=== PATIENT | male | born 1985 | race Caucasian/White ===

== ENCOUNTER 2018-09-12 15:50 | Emergency (ER) | payer SELFPAY ==
[~2018-09-12] VITALS: Wt 78.0 kg
[2018-09-12] MEDS ORDERED: LIDOCAINE/MYLANTA 40 ML BTL PO STA (17:31)
[2018-09-12] MEDS ORDERED: FAMOTIDINE 20 MG TAB PO STA (17:31)
[2018-09-12] MEDS ORDERED: ACETAMINOPHEN 325 MG TAB PO ONE (18:00)
[2018-09-12] MEDS ORDERED: ACET500C5 PO (18:36)
[2018-09-12] MEDS ORDERED: FAMO-96 PO (18:36)
--- NOTE | 2018-09-12 18:38 | ERD ---
ER Documentation Chief Complaint Chief Complaint GENERALIZED ABD PAIN X 2 DAYS HPI 33-year-old male presents with midepigastric abdominal pain for last 2 days. It is sharp and crampy and intermittent. Denies any right upper, right lower, lower abdominal pain. Denies any fevers, vomiting, diarrhea, urinary complaints. Denies significant alcohol use. ROS All systems reviewed and are negative except as per history of present illness. Medications Home Meds Active Scripts Famotidine* (Pepcid*) 20 Mg Tablet, 20 MG PO BID for 14 Days, #30 TAB Prov:WILLIAN FERRARO MD 09/12/18 Acetaminophen* (Tylophen*) 500 Mg Capsule, 1 CAP PO Q6H PRN for PAIN AND OR ELEVATED TEMP, #20 CAP Prov:WILLIAN FERRARO MD 09/12/18 Allergies Allergies: Coded Allergies: No Known Allergy (Unverified , 09/12/18) PMhx/Soc Medical and Surgical Hx: pt denies Medical Hx, pt denies Surgical Hx Hx Alcohol Use: No Hx Substance Use: No Hx Tobacco Use: No Smoking Status: Never smoker FmHx Family History: No diabetes, No coronary disease, No other Physical Exam Vitals Vital Signs Date Temp Pulse Resp B/P (MAP) Pulse Ox O2 O2 Flow FiO2 Time Delivery Rate 09/12/18 98.1 65 18 135/76 99 15:55 (95) Physical Exam Const: No acute distress Head: Atraumatic Eyes: Normal Conjunctiva ENT: Normal External Ears, Nose and Mouth. Neck: Full range of motion. No meningismus. Resp: Clear to auscultation bilaterally Cardio: Regular rate and rhythm, no murmurs Abd: Soft, normal tenderness in epigastric area. No Rivers sign and no tenderness McBurney's point. No rebound., non distended. Normal bowel sounds Skin: No petechiae or rashes Back: No midline or flank tenderness Ext: No cyanosis, or edema Neur: Awake and alert Psych: Normal Mood and Affect Result Diagram: 09/12/18 1742 09/12/18 1742 Results 24 hrs Laboratory Tests Test 09/12/18 17:41 09/12/18 17:42 Urine Color YELLOW Urine Clarity CLEAR Urine pH 5.0 Urine Specific [place] 1.019 Urine Ketones NEGATIVE mg/dL Urine Nitrite NEGATIVE mg/dL Urine Bilirubin NEGATIVE mg/dL Urine Urobilinogen NEGATIVE mg/dL Urine Leukocyte Esterase NEGATIVE Maura/ul Urine Hemoglobin NEGATIVE mg/dL Urine Glucose NEGATIVE mg/dL Urine Total Protein NEGATIVE mg/dl White Blood Count 8.1 10^3/ul Red Blood Count 5.39 10^6/ul Hemoglobin 16.3 g/dl Hematocrit 47.2 % Mean Corpuscular Volume 87.6 fl Mean Corpuscular Hemoglobin 30.2 pg Mean Corpuscular Hemoglobin Concent 34.5 g/dl Red Cell Distribution Width 12.2 % Platelet Count 258 10^3/UL Mean Platelet Volume 10.2 fl Immature Granulocytes % 0.200 % Neutrophils % 53.8 % Lymphocytes % 38.2 % Monocytes % 5.7 % Eosinophils % 1.5 % Basophils % 0.6 % Nucleated Red Blood Cells % 0.0 /100WBC Immature Granulocytes # 0.020 10^3/ul Neutrophils # 4.4 10^3/ul Lymphocytes # 3.1 10^3/ul Monocytes # 0.5 10^3/ul Eosinophils # 0.1 10^3/ul Basophils # 0.1 10^3/ul Nucleated Red Blood Cells # 0.0 10^3/ul Sodium Level 139 mmol/L Potassium Level 3.7 mmol/L Chloride Level 103 mmol/L Carbon Dioxide Level 27 mmol/L Anion Gap 9 Blood Urea Nitrogen 14 mg/dl Creatinine 0.89 mg/dl Est Glomerular Filtrat Rate mL/min > 60 mL/min Glucose Level 95 mg/dl Calcium Level 9.8 mg/dl Total Bilirubin 0.5 mg/dl Direct Bilirubin 0.00 mg/dl Indirect Bilirubin 0.5 mg/dl Aspartate Amino Transf (AST/SGOT) 46 IU/L Alanine Aminotransferase (ALT/SGPT) 28 IU/L Alkaline Phosphatase 63 IU/L Total Protein 7.6 g/dl Albumin 4.5 g/dl Globulin 3.10 g/dl Albumin/Globulin Ratio 1.45 Lipase 85 U/L Current Medications Medications Dose Sig/Leonie Start Time Status Last (Trade) Ordered Route PRN Stop Time Admin Dose Reason Admin Famotidine 20 mg ONCE STAT 09/12/18 DC 09/12/18 (Pepcid) PO 17:31 17:53 09/12/18 17:32 40 ml ONCE STAT 09/12/18 DC 09/12/18 Miscellaneous PO 17:31 17:54 Medication 09/12/18 17:32 (Gi Cocktail (2)) 650 mg ONCE ONCE 09/12/18 DC 09/12/18 Acetaminophen PO 18:00 17:53 (Tylenol 09/12/18 18:01 Tab) Procedures/MDM Patient given Pepcid, Tylenol, GI cocktail. CBC, CMP, lipase and urine normal. Patient presents with epigastric pain of uncertain etiology. Current signs or symptoms do not suggest appendicitis, hepatobiliary disease, UTI, doubt aortic disease, no signs of surgical abdomen. We will treat empirically with Tylenol, Pepcid, primary care follow-up and return precautions. The patient was stable with no new complaints during the ER course. Clinically, there is no current evidence to suggest meningitis, sepsis, acute abdomen, pneumonia, stroke, acute coronary syndrome, pulmonary embolism, aortic dissection or any other emergent condition appearing to require further evaluation or hospitalization. Patient counseled regarding my diagnostic impression and care plan. Prior to discharge all questions answered. Pt agrees with treatment plan and understands strict return precautions. Pt is instructed to follow up with primary care provider [facility] 24-48 hours. Precautionary instructions provided including instructions to return to the ER if not improving or for any worsening or changing symptoms or concerns. Departure Diagnosis: Primary Impression: Abdominal pain Abdominal location: epigastric Qualified Codes: R10.13 - Epigastric pain Condition: Stable Patient Instructions: Abdominal Pain Referrals: NO PRIMARY,CARE PHYSICIAN (PCP) COMM[facility] (SP) Usted se rose hecho un examen mdico de control que le indica que no est en karan condicin que requiera tratamiento urgente en el Departamento de Emergencia. Un estudio ms profundo y el tratamiento de cash condicin pueden esperar sin ningn riesgo hasta que usted sea atendida/o en el consultorio de cash mdico o karan clnica. Es responsabilidad suya arreglar karan kamla para el seguimiento del vandana. MANEJO DE CONDICIONES NO URGENTES EN EL FUTURO 1) Si usted tiene un mdico de atencin primaria: Usted debera llamar a cash mdico de atencin primaria antes de venir al departamento de emergencia. Despus de las horas de consultorio, cash doctor o cash asociado/a est disponible por telfono. El mdico o enfermero de luc en el servicio telefnico puede asesorarle por yaa medio para atender el problema, o c aso contrario se puede programar karan kamla. 2) Si usted no tiene un mdico de atencin primaria: Llame al mdico o clnica de referencia que aparece abajo eloise las horas de consultorio para hacer karan kamla para que le vean. CLINICAS: [place] [id number] [phone] [facility] [phone] [address] [facility] [phone] [address] [facility]. [place] [id number] [phone] [facility]. [place] [phone] [place] [id number] [phone] Additional Instructions: Examines normal hoy.posiblemente gastritis. Cheque otro vez con cash doctor primario en el proximo gross or regresa para mas o nueva simptomas. WILLIAN FERRARO MD Sep 12, 2018 18:38
[2018-09-12 18:47] VITALS: BP 122/72; PULSE 66; RESP 18
== END 2018-09-12 18:50 | disposition home or self-care (01) ==
LOC: FTE 15:50
DX: R10.84 Generalized abdominal pain (principal)
CPT/HCPCS: 36415; 80053; 81003; 83690; 85025; 99283

== ENCOUNTER → 2019-03-06 | Emergency (ER) | payer SELFPAY ==
[~2019-03-06] VITALS: Ht 167.6 cm; Wt 80.6 kg
[~2019-03-06] MED LIST: ACET500C5 PO; FAMO-96 PO
[2019-03-06 11:35] VITALS: BP 135/79; PULSE 71; RESP 18; Ht 167.6 cm; Wt 80.6 kg
--- NOTE | 2019-03-06 13:48 | ERD ---
ER Documentation Chief Complaint Chief Complaint abd pain x 1 day , denies n/v/d HPI 33-year-old male complaining of abdominal pain that began today. No fever. No worse with food, denies any alleviating or exacerbating factors. No nausea vomiting or diarrhea. No testicular pain. No dysuria hematuria or frequency. ROS All systems reviewed and are negative except as per history of present illness. Medications Home Meds Active Scripts Famotidine* (Pepcid*) 20 Mg Tablet, 20 MG PO BID for 14 Days, #30 TAB Prov:WILLIAN FERRARO MD 09/12/18 Acetaminophen* (Tylophen*) 500 Mg Capsule, 1 CAP PO Q6H PRN for PAIN AND OR ELEVATED TEMP, #20 CAP Prov:WILLIAN FERRARO MD 09/12/18 Allergies Allergies: Coded Allergies: No Known Allergy (Unverified , 09/12/18) PMhx/Soc Medical and Surgical Hx: pt denies Medical Hx, pt denies Surgical Hx Hx Alcohol Use: No Hx Substance Use: No Hx Tobacco Use: No Smoking Status: Never smoker FmHx Family History: No diabetes Physical Exam Vitals Vital Signs Date Temp Pulse Resp B/P (MAP) Pulse Ox O2 O2 Flow FiO2 Time Delivery Rate 03/06/19 97.2 71 18 135/79 99 11:35 (97) Physical Exam INITIAL VITAL SIGNS: Reviewed by me GENERAL: Awake, alert and oriented x 4, well appearing, nontoxic, speaking in full sentences. No acute distress HEAD: Atraumatic RESPIRATORY: Clear to auscultation bilaterally. Symmetric chest wall rise. No wheezing or rales. No accessory muscle use. CV: Regular rate and rhythm. No murmurs, rubs, or gallops. ABDOMEN: Soft, non-distended. Nontender. Negative [place]. Negative McBurneys point tenderness. No CVA tenderness bilaterally. No guarding. No rebound. Result Diagram: 03/06/19 1256 03/06/19 1256 Results 24 hrs Laboratory Tests Test 03/06/19 12:56 White Blood Count 6.3 10^3/ul Red Blood Count 5.16 10^6/ul Hemoglobin 15.9 g/dl Hematocrit 45.0 % Mean Corpuscular Volume 87.2 fl Mean Corpuscular Hemoglobin 30.8 pg Mean Corpuscular Hemoglobin Concent 35.3 g/dl Red Cell Distribution Width 12.0 % Platelet Count 257 10^3/UL Mean Platelet Volume 10.2 fl Immature Granulocytes % 0.300 % Neutrophils % 54.5 % Lymphocytes % 37.5 % Monocytes % 4.9 % Eosinophils % 2.2 % Basophils % 0.6 % Nucleated Red Blood Cells % 0.0 /100WBC Immature Granulocytes # 0.020 10^3/ul Neutrophils # 3.4 10^3/ul Lymphocytes # 2.4 10^3/ul Monocytes # 0.3 10^3/ul Eosinophils # 0.1 10^3/ul Basophils # 0.0 10^3/ul Nucleated Red Blood Cells # 0.0 10^3/ul Urine Color YELLOW Urine Clarity CLEAR Urine pH 7.0 Urine Specific [place] 1.023 Urine Ketones NEGATIVE mg/dL Urine Nitrite NEGATIVE mg/dL Urine Bilirubin NEGATIVE mg/dL Urine Urobilinogen NEGATIVE mg/dL Urine Leukocyte Esterase NEGATIVE Maura/ul Urine Hemoglobin NEGATIVE mg/dL Urine Glucose NEGATIVE mg/dL Urine Total Protein NEGATIVE mg/dl Sodium Level 141 mmol/L Potassium Level 4.4 mmol/L Chloride Level 105 mmol/L Carbon Dioxide Level 27 mmol/L Anion Gap 9 Blood Urea Nitrogen 15 mg/dl Creatinine 0.89 mg/dl Est Glomerular Filtrat Rate mL/min > 60 mL/min Glucose Level 107 mg/dl Calcium Level 9.5 mg/dl Total Bilirubin 0.7 mg/dl Direct Bilirubin 0.00 mg/dl Indirect Bilirubin 0.7 mg/dl Aspartate Amino Transf (AST/SGOT) 29 IU/L Alanine Aminotransferase (ALT/SGPT) 31 IU/L Alkaline Phosphatase 65 IU/L Total Protein 8.0 g/dl Albumin 4.5 g/dl Globulin 3.50 g/dl Albumin/Globulin Ratio 1.28 Lipase 128 U/L Procedures/MDM Is a 33-year-old with abdominal pain. The differential diagnosis includes but is not limited to appendicitis, cholelithiasis, cholecystitis, pancreatitis, hepatitis, gastritis, peptic ulcer disease, bowel obstruction, diverticulitis, renal disease including stones, torsion, AAA, pyelonephritis, and others. Exam is benign he has no tenderness throughout. Laboratory analysis shows no evidence of acute emergent abnormality. No evidence of significant leukocytosis suggesting systemic infection or severe anemia. No evidence of acute renal or liver failure, no evidence of severe alkalosis or acidosis. Patient counseled regarding my diagnostic impression and care plan. Prior to discharge all questions answered. Pt agrees with treatment plan and understands strict return precautions. Pt is instructed to follow up with primary care provider within 24- 48 hours. Precautionary instructions provided including instructions to return to the ER if not improving or for any worsening or changing symptoms or concerns. Departure Diagnosis: Primary Impression: Abdominal pain Condition: Stable GELA MAYA PA-C Mar 06, 2019 13:48
== END | disposition home or self-care (01) ==
LOC: FTE 11:18
DX: R10.9 Unspecified abdominal pain (principal)
CPT/HCPCS: 80053; 81003; 83690; 85025; 99283

== ENCOUNTER 2019-03-12 10:57 | Emergency (ER) | payer MEDICAID ==
[~2019-03-12] VITALS: Ht 167.6 cm; Wt 80.1 kg
[2019-03-12 11:05] VITALS: Ht 167.6 cm; Wt 80.1 kg
[2019-03-12] MEDS ORDERED: OLANZAPINE (ODT) 5 MG TAB ODT ONE (12:00)
--- NOTE | 2019-03-12 14:04 | ERD ---
ER Documentation Chief Complaint Chief Complaint CP WITH PAIN GOES TO BACK TODAY; H/A FOR FEW DAYS HPI There is a 33-year-old gentleman who presents to the emergency room with hallucinations. He states that he is hearing voices. The voices are saying that a knife is coming towards him. When he heard this he started to have chest pain that is now alleviated. He cannot describe the chest pain. He denies any migratory pain despite what was noted in triage. Patient is having delusions and feels like he might harm his family at home. Patient denies any headache to me. Patient is a very limited historian. Translation services were utilized during this patient's encounter Language: Montene[place]in Source: In person ROS All systems reviewed and are negative except as per history of present illness. Medications Home Meds Discontinued Scripts Famotidine* (Pepcid*) 20 Mg Tablet, 20 MG PO BID for 14 Days, #30 TAB Prov:WILLIAN FERRARO MD 09/12/18 Acetaminophen* (Tylophen*) 500 Mg Capsule, 1 CAP PO Q6H PRN for PAIN AND OR ELEVATED TEMP, #20 CAP Prov:WILLIAN FERRARO MD 09/12/18 Allergies Allergies: Coded Allergies: No Known Allergy (Unverified , 03/12/19) PMhx/Soc Medical and Surgical Hx: pt denies Surgical Hx History of Surgery: No Anesthesia Reaction: No Hx Neurological Disorder: No Hx Respiratory Disorders: No Hx Cardiac Disorders: No Hx Psychiatric Problems: Yes (Depression) Hx Miscellaneous Medical Probl: No Hx Alcohol Use: No Hx Substance Use: No Hx Tobacco Use: No Smoking Status: Never smoker FmHx Family History: No diabetes Physical Exam Vitals Vital Signs Date Temp Pulse Resp B/P (MAP) Pulse Ox O2 O2 Flow FiO2 Time Delivery Rate 03/12/19 97.8 68 18 129/72 95 11:05 (91) Physical Exam General: Well developed, well nourished, no acute distress Head: Normocephalic, atraumatic. Eyes: Pupils equally reactive, EOM intact ENT: Moist mucous membranes Neck: Supple, no lymphadenopathy Respiratory: Lungs clear bilaterally, no distress Cardiovascular: RRR, no murmurs, rubs, or gallops Abdominal: Soft, non-tender, non-distended, no peritoneal signs : Deferred MSK: No edema, no unilateral swelling, 5/5 strength Neurologic: Alert and oriented, moving all extremities, normal speech, no focal weakness, no cerebellar signs Skin: No rash Psych: Normal mood flattened affect, auditory hallucinations, delusions of persecution, homicidal ideations Result Diagram: 03/12/19 1215 03/12/19 1215 Results 24 hrs Laboratory Tests Test 03/12/19 12:15 White Blood Count 5.6 10^3/ul Red Blood Count 5.04 10^6/ul Hemoglobin 15.2 g/dl Hematocrit 44.7 % Mean Corpuscular Volume 88.7 fl Mean Corpuscular Hemoglobin 30.2 pg Mean Corpuscular Hemoglobin Concent 34.0 g/dl Red Cell Distribution Width 12.5 % Platelet Count 225 10^3/UL Mean Platelet Volume 10.8 fl Immature Granulocytes % 0.200 % Neutrophils % 45.0 % Lymphocytes % 45.1 % Monocytes % 6.5 % Eosinophils % 2.7 % Basophils % 0.5 % Nucleated Red Blood Cells % 0.0 /100WBC Immature Granulocytes # 0.010 10^3/ul Neutrophils # 2.5 10^3/ul Lymphocytes # 2.5 10^3/ul Monocytes # 0.4 10^3/ul Eosinophils # 0.2 10^3/ul Basophils # 0.0 10^3/ul Nucleated Red Blood Cells # 0.0 10^3/ul Sodium Level 142 mmol/L Potassium Level 3.9 mmol/L Chloride Level 106 mmol/L Carbon Dioxide Level 29 mmol/L Anion Gap 7 Blood Urea Nitrogen 16 mg/dl Creatinine 0.99 mg/dl Est Glomerular Filtrat Rate mL/min > 60 mL/min Glucose Level 103 mg/dl Calcium Level 9.8 mg/dl Troponin I < 0.012 ng/ml Urine Opiates Screen Negative Urine Barbiturates Negative Urine Amphetamines Screen Negative Urine Benzodiazepines Screen Negative Urine Cocaine Screen Negative Urine Cannabinoids Negative Ethyl Alcohol Level < 10.0 mg/dl Current Medications Medications Dose Sig/Leonie Start Time Status Last (Trade) Ordered Route PRN Stop Time Admin Dose Reason Admin Olanzapine 5 mg ONCE ONCE 03/12/19 DC 03/12/19 (Zyprexa ODT 12:00 13:26 Zydis) 03/12/19 12:01 Procedures/MDM EKG/DIAGNOSTIC IMAGING: EKG: I reviewed and interpreted a 12-lead EKG. Rhythm: Normal sinus rhythm ST Changes: No contiguous ST segment elevations T waves: No contiguous T wave inversions Impression: [No evidence of acute cardiac ischemia] chest x-ray: I reviewed and interpreted a 1 view of the chest Mediastinum: No enlargement Cardiac silhouette: No cardiomegaly Airspace: Clear lung carlson bilaterally without evidence of pneumothorax Bones: No evidence of fracture LAB INTERPRETATION: [No acute process] MEDICAL DECISION MAKING: The patient's presentation is consistent with underlying psychiatric illness and likely exacerbation of this illness and/or psychosis. The patient's chest pain is nonspecific and likely related to his delusions. I do not believe this is consistent with ACS or other acute process. I have a much lower clinical concern for delirium or acute organic pathology s uch as toxicologic, metabolic, ischemic, intracranial hemorrhage, infectious process. However, we must rule this out prior to relying a diagnosis of underlying psychiatric illness. The patient's workup will include medical screening examination and appropriate laboratory testing. If the patient's medical examination does not reveal acute organic pathology the patient will be medically cleared for psychiatric evaluation. ER COURSE: * Chest pain is noncardiogenic. No evidence of ACS or acute process based on laboratory testing and diagnostic imaging. * The patient's evaluation does not suggest an acute organic pathology. At this time I believe the patient's presentation is very consistent with underlying psychiatric illness. The patient is medically cleared for psychiatric evaluation. CONSULTATION: Psychiatric consultation: Telemetry medicine psychiatry has been consulted on this case to evaluate the patient for possible acute psychiatric illness that would require inpatient hospitalization. DISPOSITION PLAN: Patient cleared for psychiatric evaluation. Departure Diagnosis: Primary Impression: Auditory hallucinations Additional Impressions: Homicidal ideation Atypical chest pain Condition: Stable EDGAR RUTH MD Mar 12, 2019 14:04
--- NOTE | 2019-03-12 15:29 | PSY ---
Date/Time of Note Date/Time of Note DATE: 03/12/19 TIME: 15:24 Psychiatric Subjective Eval Consent Pt consented to telemedicine: Yes Subjective Evaluation Patient location: emergency Chief Complaint: CP WITH PAIN GOES TO BACK TODAY; H/A FOR FEW DAYS History of present illness 33 yo male self presents to ED c/o chest pain. Pt is disorganized, tangential; her reports hearing voices inserting bad thoughts in his body and in his head. He reports SI with a plan to use a knife. He denies depressed mood, he is laughing but ruminates about bad people and bad energies inside of his body. Denies SI and then says , yes, people are telling him to use the knife to harm himself. Denies HI. Past psychiatric history denies Hospitalization: no Family History denies Medical history Problems Medical Problems: (1) Abdominal pain Status: Acute (2) Abdominal pain Status: Acute (3) Atypical chest pain Status: Acute (4) Auditory hallucinations Status: Acute (5) Homicidal ideation Status: Acute Allergies: Coded Allergies: No Known Allergy (Unverified , 03/12/19) Substance Abuse Substance use: No known substance abuse Social History Marital status: single DPA/Conservatorship: No Occupation/Fdc: unemployed Psychiatric Objective Eval Review of Systems: Review of Systems: Not Applicable Physical Examination: Physical Examination: Not Applicable Mental Status Examination: Appearance: Groomed Eye Contact: Fair Psychomotor Activity: Normal Behavior: Cooperative Speech: Disorganized AFFECT: Appropriate, Libile Mood: Appropriate/Full Though Process: Tangential Thought Content: Hallucinations Suicidal: Yes Homicidal: No On 72 hour hold: No Orientation: x3 Cognition: Alert Insight: Impared Judgement: Impared Laboratory Results Laboratory Tests Test 03/12/19 12:15 White Blood Count 5.6 10^3/ul Red Blood Count 5.04 10^6/ul Hemoglobin 15.2 g/dl Hematocrit 44.7 % Mean Corpuscular Volume 88.7 fl Mean Corpuscular Hemoglobin 30.2 pg Mean Corpuscular Hemoglobin Concent 34.0 g/dl Red Cell Distribution Width 12.5 % Platelet Count 225 10^3/UL Mean Platelet Volume 10.8 fl Immature Granulocytes % 0.200 % Neutrophils % 45.0 % Lymphocytes % 45.1 % Monocytes % 6.5 % Eosinophils % 2.7 % Basophils % 0.5 % Nucleated Red Blood Cells % 0.0 /100WBC Immature Granulocytes # 0.010 10^3/ul Neutrophils # 2.5 10^3/ul Lymphocytes # 2.5 10^3/ul Monocytes # 0.4 10^3/ul Eosinophils # 0.2 10^3/ul Basophils # 0.0 10^3/ul Nucleated Red Blood Cells # 0.0 10^3/ul Sodium Level 142 mmol/L Potassium Level 3.9 mmol/L Chloride Level 106 mmol/L Carbon Dioxide Level 29 mmol/L Anion Gap 7 Blood Urea Nitrogen 16 mg/dl Creatinine 0.99 mg/dl Est Glomerular Filtrat Rate mL/min > 60 mL/min Glucose Level 103 mg/dl Calcium Level 9.8 mg/dl Troponin I < 0.012 ng/ml Urine Opiates Screen Negative Urine Barbiturates Negative Urine Amphetamines Screen Negative Urine Benzodiazepines Screen Negative Urine Cocaine Screen Negative Urine Cannabinoids Negative Ethyl Alcohol Level < 10.0 mg/dl Assessment and Plan Assessment/Diagnosis Diagnosis UNSPECIFIED PSYCHOSIS Recommendation/Plan Medication Management ZYPREXA 10 MG PO QHS Multiple antipsychotics: Yes Discharge Disposition: Psychiatric inpatient Legal Status: Place involuntary hold NILE DURON MD Mar 12, 2019 15:29
[2019-03-12] MEDS ORDERED: OLANZAPINE (ODT) 5 MG TAB ODT STA (23:20)
--- NOTE | 2019-03-12 23:21 | PSY ---
Date/Time of Note Date/Time of Note DATE: 03/12/19 TIME: 23:17 Psychiatric Subjective Eval Consent Pt consented to telemedicine: Yes Subjective Evaluation Patient location: emergency Chief Complaint: CP WITH PAIN GOES TO BACK TODAY; H/A FOR FEW DAYS Reason for consult: HEARING VOICES TELLING HIM TO HURT HIMSELF Hospitalization: no Medical history Problems Medical Problems: (1) Abdominal pain Status: Acute (2) Abdominal pain Status: Acute (3) Atypical chest pain Status: Acute (4) Auditory hallucinations Status: Acute (5) Homicidal ideation Status: Acute Allergies: Coded Allergies: No Known Allergy (Unverified , 03/12/19) Social History Marital status: single DPA/Conservatorship: No Occupation/Skilled Nursing: unemployed Psychiatric Objective Eval Mental Status Examination: Laboratory Results Laboratory Tests Test 03/12/19 12:15 White Blood Count 5.6 10^3/ul Red Blood Count 5.04 10^6/ul Hemoglobin 15.2 g/dl Hematocrit 44.7 % Mean Corpuscular Volume 88.7 fl Mean Corpuscular Hemoglobin 30.2 pg Mean Corpuscular Hemoglobin Concent 34.0 g/dl Red Cell Distribution Width 12.5 % Platelet Count 225 10^3/UL Mean Platelet Volume 10.8 fl Immature Granulocytes % 0.200 % Neutrophils % 45.0 % Lymphocytes % 45.1 % Monocytes % 6.5 % Eosinophils % 2.7 % Basophils % 0.5 % Nucleated Red Blood Cells % 0.0 /100WBC Immature Granulocytes # 0.010 10^3/ul Neutrophils # 2.5 10^3/ul Lymphocytes # 2.5 10^3/ul Monocytes # 0.4 10^3/ul Eosinophils # 0.2 10^3/ul Basophils # 0.0 10^3/ul Nucleated Red Blood Cells # 0.0 10^3/ul Sodium Level 142 mmol/L Potassium Level 3.9 mmol/L Chloride Level 106 mmol/L Carbon Dioxide Level 29 mmol/L Anion Gap 7 Blood Urea Nitrogen 16 mg/dl Creatinine 0.99 mg/dl Est Glomerular Filtrat Rate mL/min > 60 mL/min Glucose Level 103 mg/dl Calcium Level 9.8 mg/dl Troponin I < 0.012 ng/ml Urine Opiates Screen Negative Urine Barbiturates Negative Urine Amphetamines Screen Negative Urine Benzodiazepines Screen Negative Urine Cocaine Screen Negative Urine Cannabinoids Negative Ethyl Alcohol Level < 10.0 mg/dl Assessment and Plan Recommendation/Plan Discharge Disposition: Psychiatric inpatient Legal Status: Place involuntary hold Assessment Additional comments: IDENTIFYING INFORMATION: 33 year old Male patient who is currently located at the hospital and for whom psychiatric consultation was requested. SOURCES OF INFORMATION: The patient who appears to be unreliable and the medical records; the nursing staff. CHIEF COMPLAINT: "I am fine". HISTORY OF PRESENT ILLNESS: The patient was interviewed via telemedicine in the presence of and under the supervision of nursing staff of the hospital. The consent to conducting this interview via telemedicine was obtained by the nursing staff at the hospital. RICHARD Wise reports that the patient presented with SI with plan to use knife, was having RTIS, HI. The patient was evaluated earlier today by psychiatrist, Dr. Zimmer. Dx was unspecified psychotic disorder. Zyprexa 10 mg po qhs. Inpatient psychiatric admission on a 5150 hold was recommended. The patient reports having a lot of energy, he is now feeling fine and wants to be discharged. Reports that he has spiritual problems with the palabras. Admits to . The patient denies having SI. The patient denies using alcohol heavily or regularly. The patient denies using any other substances. In terms of past psychiatric history, the patient reports having a history of no past psychiatric hospitalizations. The patient reports having a history of no past suicide attempts. PAST MEDICAL HISTORY: none. CURRENT MEDICATIONS: none. ALLERGIES TO MEDICATIONS: NKDA. LABORATORY TESTS: CBC wnl, BMP unremarkable, UDS negative, alcohol level not detected. SOCIAL HISTORY: has 3 children, employed, not on disability, second grade education, born and raised in [place]. REVIEW OF SYSTEMS: Constitutional (e.g., fever, weight loss): negative; Eyes, Ears, Nose, Mouth, Throat: negative; Cardiovascular: negative; Respiratory: negative; Gastrointestinal: negative; Genitourinary: negative; Musculoskeletal: negative; Integumentary (skin and/or breast): negative; Neurological: negative; Psychiatric: as per HPI; Endocrine: negative; Hematologic/Lymphatic: negative; Allergic/Immunologic: negative. MENTAL STATUS EXAMINATION: General Appearance and Behavior: Calm, cooperative with the interview, pleasant with the current interviewer, makes fair eye contact, fairly groomed, no abnormal movements noted, Speech: Regular rate, regular rhythm, normal latency, normal volume, somewhat decreased amount, Flow of thought: sequential, logical, goal-directed, Content of thought: + auditory hallucinations, no visual hallucinations, no delusions, positive for suicidal ideation; + homicidal ideation, Mood: "depressed", Affect: dysthymic, dysphoric, not reactive, Attention: normal based on the interview, Insight: fair, Judgment: poor, Memory: normal based on the interview, Sensorium: alert and oriented to person, place and date. ASSESSMENT: The patient's presentation and history are consistent with the diagnosis of unspecified psychotic disorder. The patient presents with an exacerbation of psychosis in the context of medication noncompliance, psychosocial stressors and substance use. PLAN: - Medication management: Would start zyprexa 10 mg po qhs. Would start haloperidol 5 mg IM PRN severe agitation q4 hours. Would start diphenhydramine 50 mg IM PRN severe agitation q4 hours. Would start lorazepam 2 mg IM PRN severe agitation q4 hours Will defer to the inpatient psychiatry team for other medication changes. - Labs: No other laboratory tests are needed at this time. - Psychotherapy: Provided supportive psychotherapy and psychoeducation. - Disposition: Would recommend involuntary admission to the inpatient psychiatric unit given the severity of the patient's psychiatric condition and the fact that the patient is an imminent danger to self and/or others so long as the patient has been cleared medically for admission to psychiatry. Inpatient psychiatric admission is at this time the least restrictive environment where the patient can receive the psychiatric care that is needed. Would place on suicide precautions. The patient fulfills criteria for being placed on an involuntary hold for being a danger to self due to a psychiatric disorder. Discussed about the above plan with Dr. Anderson. BRITTANIE JEROME MD Mar 12, 2019 23:21
[2019-03-13 07:19] VITALS: BP 115/62; PULSE 61; RESP 16
[2019-03-13] MEDS ORDERED: OLANZAPINE (ODT) 5 MG TAB ODT SCH (21:00)
== END 2019-03-13 09:23 ==
LOC: E/R 10:57
DX: R44.0 Auditory hallucinations (principal); R45.850 Homicidal ideations; R07.89 Other chest pain
CPT/HCPCS: 36415; 71045; 80048; 80307; 84484; 85025; 93005; Z7502; Z7610

== ENCOUNTER 2019-05-15 20:48 | Emergency (ER) | payer SELFPAY ==
[~2019-05-15] VITALS: Ht 162.6 cm; Wt 80.4 kg
[~2019-05-15 20:48] MED LIST changes: +ALPR0.5T PO; +AMIT25TA9 PO; +BEN50 PO; +BENZ1TAB7 PO; +CITA10TA5 PO; +DICL100G37 TOP; -FAMO-96 PO; +FLUO20CA22 PO; +HALO5TAB23 PO; +HYDR-842 PO; +HYDR-843 PO; +HYDR-845 PO; +IBUP-1542 PO; +IBUP800T48 PO; +LORA-441 PO; +NALO4SPR NS; +OLAN10TA32 PO; +OMEP20CA17 PO; +OMEP40CA38 PO; +ONDA4TAB14 PO; +TRAZ-150 PO
[2019-05-15 21:34] VITALS: BP 166/94; PULSE 64; RESP 18; Ht 162.6 cm; Wt 80.4 kg
== END 2019-05-16 03:00 | disposition left against medical advice (07) ==
LOC: E/R 20:48
DX: Z53.21 Procedure and treatment not carried out due to patient leaving prior to being seen by health care provider (principal)
CPT/HCPCS: 93005

== ENCOUNTER 2019-06-24 16:23 | Emergency (ER) | payer MEDICAID ==
[~2019-06-24] VITALS: Ht 170.2 cm; Wt 82.7 kg
[~2019-06-24 16:23] MED LIST changes: -ALPR0.5T PO; -AMIT25TA9 PO; -BEN50 PO; -BENZ1TAB7 PO; -CITA10TA5 PO; -FLUO20CA22 PO; -HALO5TAB23 PO; -HYDR-843 PO; -HYDR-845 PO; -NALO4SPR NS; -TRAZ-150 PO
[2019-06-24 16:24] VITALS: BP 132/83; PULSE 87; RESP 18; Ht 170.2 cm; Wt 82.7 kg
[2019-06-24] MEDS ORDERED: ONDANSETRON 4 MG INJ IV STA (17:04)
[2019-06-24] MEDS ORDERED: morphine 4 MG/ML VIAL IV STA (17:04)
[2019-06-24] MEDS ORDERED: SOD CHLORIDE 0.9% 1,000 ML IV STA (17:04)
[2019-06-24] MEDS ORDERED: ACETAMINOPHEN 325 MG TAB PO ONE (19:00)
== END 2019-06-24 20:33 | disposition home or self-care (01) ==
LOC: FTE 16:23
DX: R51 Headache (principal); R40.2412 Glasgow coma scale score 13-15, at arrival to emergency department; F41.9 Anxiety disorder, unspecified
CPT/HCPCS: 36415; 70450; 71045; 80053; 80307; 81003; 83690; 84484; 85025; 93005; 96374; 96375; J2270; J2405; J7030; Z7502; Z7610